=== PATIENT | female | born 1965 | race African-American/Black ===

== ENCOUNTER 2022-12-14 05:59 | Day surgery (SDC) | payer OTHER ==
[2022-12-14] MEDS ORDERED: Ringers Lactate 1,000 ML IV ONE (06:51)
[2022-12-14 07:19] VITALS: O2SAT 100
[2022-12-14] MEDS ORDERED: propofoL 200 MG/20 ML VIAL IV ONE (08:15)
[2022-12-14] MEDS ORDERED: GLYCOPYRROLATE 0.2 MG/ML SYR ONE (08:55)
[2022-12-14 09:56] VITALS: TEMP 97.1
[2022-12-14 09:57] VITALS: BP 120/66
== END 2022-12-14 09:40 | disposition home or self-care (01) ==
LOC: PRE 05:59 → OR 09:40
PROVIDERS: ATTEND Surgery
PROC: 0DBL8ZX Excision of Transverse Colon, Via Natural or Artificial Opening Endoscopic, Diagnostic (ICD-10-PCS; principal; 2022-12-14 08:15)
DX: K59.00 Constipation, unspecified (principal); R14.0 Abdominal distension (gaseous); Z86.010 Personal history of colon polyps; K64.4 Residual hemorrhoidal skin tags; K64.8 Other hemorrhoids
CPT/HCPCS: 88305; 45380; J2704; J7120